=== PATIENT | female | born 1950 ===

== ENCOUNTER → 2024-02-16 | Outpatient (REF) | payer MEDICARE, OTHER ==
[2024-02-16 18:51] LABS: TESTOSTERONE 25 NG/DL (14-76)
[2024-02-16 18:52] LABS: ESTRADIOL < 19.0 PG/ML; FOLLICLE STIMULATING HORMONE 90.2 mIU/ML
[2024-02-16 18:53] LABS: PROGESTERONE < 0.21 NG/ML
[2024-02-16 19:17] LABS: HEMOGLOBIN 13.7 g/dl (12.0-15.5); MEAN CORPUSCULAR HEMOGLOBIN 31.9 pg (27.0-33.0); MEAN CORPUSCULAR HGB CONC 32.6 g/dl (32.0-36.5); MEAN CORPUSCULAR VOLUME 97.9 fl (80.0-96.0); PLATELET COUNT, AUTOMATED 236 10^3/uL (150-450); RED BLOOD COUNT 4.29 10^6/uL (4.00-5.40); WHITE BLOOD COUNT 3.9 10^3/uL (4.0-10.0)
== END ==
LOC: M LABDRAWC 17:04
PROVIDERS: ATTEND Physician Assistant
DX: N95.9 Unspecified menopausal and perimenopausal disorder (principal)